=== PATIENT | female | born 1955 | race Caucasian/White ===

== ENCOUNTER 2021-09-30 12:44 | Outpatient (CLI) | payer MEDICARE ==
[2021-09-30 13:31] LABS: #Monocytes 0.5 10x3/uL (0.0-1.1); #Neutrophils 4.3 10x3/uL (1.5-8.4); %Basophils 0.3 % (0.0-2.0); %Eosinophils 0.3 % (0.0-6.0); %Lymphocytes 23.8 % (18.0-47.0); %Monocytes 8.5 % (0.0-10.0); %Neutrophils 66.8 % (40.0-75.0); Mean Corpuscular HGB CONC 32.7 g/dL (32.0-36.0); Mean Corpuscular Hemoglobin 31.9 pg (27.0-33.0); Mean Corpuscular Volume 97.3 fl (81.6-98.3); Platelet Count 274 10x3/uL (150-450); RBC Distribution Width 12.4 % (11.5-14.5); Red Blood Cell (RBC) Count 4.08 10x6/uL (3.90-5.03); White Blood Cell (WBC) Count 6.4 10x3/uL (3.5-10.5)
[2021-09-30 13:49] LABS: Anion Gap 14 mmol/L (10-20); BUN (Urea Nitrogen) 15 mg/dL (9.8-20.1); Calc. Creatinine Clearance 0 mL/min (70-130); Carbon Dioxide 29 mmol/L (23-31); Chloride 102 mmol/L (98-107); Estimated GFR 90; Glucose 94 mg/dL (80-115); Potassium 4.5 mmol/L (3.5-5.1); Sodium 140 mmol/L (136-145)
== END 2021-09-30 12:45 | disposition home or self-care (01) ==
LOC: LABBT 12:44
PROVIDERS: ATTEND Specialist
DX: Z01.818 Encounter for other preprocedural examination (principal); C50.911 Malignant neoplasm of unspecified site of right female breast; Z20.822 Contact with and (suspected) exposure to COVID-19
CPT/HCPCS: 80048; 85025; 87811; 93005; 93010

== ENCOUNTER 2021-10-08 14:22 | Outpatient (CLI) | payer MEDICARE | END 2021-10-08 14:23 | disposition home or self-care (01) | LOC: LABBT 14:22 | PROVIDERS: ATTEND Specialist | DX: C50.911 Malignant neoplasm of unspecified site of right female breast (principal); Z20.822 Contact with and (suspected) exposure to COVID-19 | CPT/HCPCS: 87811 ==

== ENCOUNTER 2021-10-11 09:47 | Observation (INO) | payer MEDICARE ==
[2021-10-01 11:08] VITALS: BMI 21.7
[2021-10-11] MEDS ORDERED: Acetaminophen 500 MG TAB ONE (11:32)
[2021-10-11] MEDS ORDERED: Ketorolac Tromethamine 30 MG/ML VIAL ONE (11:33)
[2021-10-11] MEDS ORDERED: Lidocaine 1% MPF 2 ML VIAL ONE (11:49)
[2021-10-11] MEDS ORDERED: Famotidine/PF 20 mg/2ml Vial ONE (12:22)
[2021-10-11] MEDS ORDERED: fentaNYL Citrate/PF 100 MCG/2 ML SYRINGE ONE (12:22)
[2021-10-11] MEDS ORDERED: Midazolam HCl 2 mg/2 ml Vial ONE (12:26)
[2021-10-11] MEDS ORDERED: Bupivacaine 0.25% HCL 30 ML VIAL ONE (12:30)
[2021-10-11] MEDS ORDERED: Lidocaine 1% PF 5 ML VIAL ONE (12:31)
[2021-10-11] MEDS ORDERED: Isosulfan Blue 50 MG/5 ML VIAL ONE (12:37)
[2021-10-11] MEDS ORDERED: Bupivacaine/Epinephrine 0.25% 30 ML VIAL ONE (12:37)
[2021-10-11] MEDS ORDERED: Scopolamine 1.5 mg/72 hour Patch ONE (12:43)
[2021-10-11] MEDS ORDERED: hydrALAZINE 20 MG/ML VIAL SLOW IVP PRN (21:13)
[2021-10-11] MEDS ORDERED: Ondansetron PF 4 MG/2 ML Vial IVP PRN (21:13)
[2021-10-11] MEDS ORDERED: Dextrose 5% in Water 1,000 ML IV PRN (21:13)
[2021-10-11] MEDS ORDERED: Dextrose 50% Abboject 50 ML SYRINGE SLOW IVP PRN (21:13)
[2021-10-11] MEDS ORDERED: Promethazine HCl 25 MG/ML VIAL IM PRN (21:13)
[2021-10-11] MEDS ORDERED: Ondansetron ODT 4 MG TAB PO PRN (21:19)
[2021-10-11] MEDS ORDERED: Acetaminophen 500 MG TAB PO PRN (21:25)
[2021-10-12] MEDS: Ketorolac Tromethamine 30 MG/ML VIAL IVP SCH ×2 (00:22→06:30)
[2021-10-12] MEDS: Lactated Ringer's 1,000 ML IV SCH ×2 (05:07→08:04)
[2021-10-12 05:38] LABS: #Lymphocytes 0.7 thou/uL (1.20-3.40); #Monocytes 0.7 thou/uL (0.11-0.59); #Neutrophils 10.1 thou/uL (1.40-6.50); %Basophils 0.1 % (0.0-1.0); %Monocytes 6.2 % (0.0-10.0); %Neutrophils 87.7 % (42.0-75.0); Hemoglobin 11.5 g/dL (12.0-16.0); Mean Corpuscular HGB CONC 33.5 g/dL (32.0-36.0); Mean Corpuscular Hemoglobin 32.5 pg (27.0-31.0); Mean Corpuscular Volume 96.9 fL (78.0-98.0); Mean Platelet Volume 6.7 fL (7.4-10.4); Platelet Count 205 thou/uL (130-400); RBC Distribution Width 12.3 % (11.5-14.5); Red Blood Cell (RBC) Count 3.54 mill/uL (4.20-5.40); White Blood Cell (WBC) Count 11.5 thou/uL (4.8-10.8)
[2021-10-12 08:10] VITALS: BP 109/72; TEMP 98
[2021-10-12] MEDS ORDERED: Famotidine 20 MG TAB PO SCH (09:00)
[2021-10-17] MEDS ORDERED: Ibuprofen 600 MG TAB PO PRN (06:00)
== END 2021-10-12 11:45 | disposition home or self-care (01) ==
LOC: NM 09:47 → 2NO 11:33 → UNDOADMIN 11:33 → MSONC 21:19
PROVIDERS: ADMIT Specialist; ATTEND Specialist
PROC: 0HTV0ZZ Resection of Bilateral Breast, Open Approach (ICD-10-PCS; principal; 2021-10-11)
PROC: 07B50ZX Excision of Right Axillary Lymphatic, Open Approach, Diagnostic (ICD-10-PCS; 2021-10-11)
PROC: 0JPT0WZ Removal of Totally Implantable Vascular Access Device from Trunk Subcutaneous Tissue and Fascia, Open Approach (ICD-10-PCS; 2021-10-11)
DX: C50.411 Malignant neoplasm of upper-outer quadrant of right female breast (principal); N60.31 Fibrosclerosis of right breast; G62.9 Polyneuropathy, unspecified; Z17.1 Estrogen receptor negative status [ER-]; Z92.21 Personal history of antineoplastic chemotherapy; Z79.899 Other long term (current) drug therapy; Z88.5 Allergy status to narcotic agent; Z91.040 Latex allergy status; Z91.048 Other nonmedicinal substance allergy status
CPT/HCPCS: 19303; 36590; 38525; 38900; 78195; 85025; 96374; 96376; A9541; C1713; G0378 ×2; Q9968; 36415; 88307; 88342; J1885; J2250; J7120; S0020; S0028